=== PATIENT | female | born 1965 | race African-American/Black ===

== ENCOUNTER 2020-06-16 08:29 | Inpatient (IN) | payer OTHER ==
[2020-06-16 09:18] VITALS: BMI 18.8
[2020-06-16] MEDS ORDERED: MAGNESIUM CITRATE 300 ML BOTTLE PO PRN (09:30)
[2020-06-16] MEDS ORDERED: chlordiazePOXIDE HCL 25 MG CAPSULE PO PRN (09:30)
[2020-06-16] MEDS ORDERED: METHOCARBAMOL 500 MG TABLET PO PRN (09:30)
[2020-06-16] MEDS ORDERED: BISMUTH SUBSALICYLATE 524 MG/30 ML UD PO PRN (09:30)
[2020-06-16] MEDS ORDERED: MAGNESIUM HYDROX 2400MG/30ML ORAL SUSPENSION 30 ML CUP PO PRN (09:30)
[2020-06-16] MEDS ORDERED: ACETAMINOPHEN 325 MG TABLET (FP) PO PRN ×2 (09:30)
[2020-06-16] MEDS ORDERED: ONDANSETRON *ODT* 4 MG TABLET SL PRN (09:30)
[2020-06-16] MEDS ORDERED: NICOTINE POLACRILEX 2 MG GUM BUC PRN (09:30)
[2020-06-16] MEDS ORDERED: MENTHOL/PHENOL 1 EACH UD MM PRN (09:30)
[2020-06-16] MEDS ORDERED: ALBUTEROL SO4 HFA INHALER IH PRN (10:39)
[2020-06-16] MEDS: PRENATAL VITAMINS W/ FOLIC ACID TABLET (FP) PO SCH (11:31)
[2020-06-16] MEDS: NICOTINE 7 MG/24 HOURS TOPICAL PATCH TD SCH (11:31)
[2020-06-16] MEDS: hydrOXYzine PAMOATE 25 MG CAPSULE (FP) PO SCH ×2 (11:31→13:16)
[2020-06-16] MEDS: IBUPROFEN 400 MG TABLET (FP) PO PRN (11:32)
[2020-06-16] MEDS: ASPIRIN 81 MG CHEWABLE TABLETS PO SCH (11:32)
[2020-06-16] MEDS: predniSONE 20 MG TABLET (UD) PO SCH (12:47)
[2020-06-16] MEDS ORDERED: hydrOXYzine PAMOATE 25 MG CAPSULE (FP) PO PRN (13:50)
[2020-06-16] MEDS: chlordiazePOXIDE HCL 25 MG CAPSULE PO SCH ×2 (17:50→22:20)
[2020-06-16] MEDS: THIAMINE HCL 100 MG TABLET (FP) PO SCH (22:19)
[2020-06-16] MEDS: QUEtiapine FUMARATE 100 MG TABLET (FP) PO SCH (22:19)
[2020-06-16] MEDS: MELATONIN 5 MG TABLETS PO SCH (22:20)
[2020-06-17] MEDS: chlordiazePOXIDE HCL 25 MG CAPSULE PO SCH ×4 (06:43→23:14)
[2020-06-17] MEDS: ASPIRIN 81 MG CHEWABLE TABLETS PO SCH (11:27)
[2020-06-17] MEDS: predniSONE 20 MG TABLET (UD) PO SCH (11:27)
[2020-06-17] MEDS: NICOTINE 7 MG/24 HOURS TOPICAL PATCH TD SCH (11:29)
[2020-06-17] MEDS: PRENATAL VITAMINS W/ FOLIC ACID TABLET (FP) PO SCH (11:30)
[2020-06-17] MEDS: QUEtiapine FUMARATE 100 MG TABLET (FP) PO SCH (22:44)
[2020-06-17] MEDS: MAG HYDROX/AL HYDROX/SIMETH 30 ML UNIT-DOSE CUP PO PRN (22:44)
[2020-06-17] MEDS: MELATONIN 5 MG TABLETS PO SCH (23:12)
[2020-06-17] MEDS: THIAMINE HCL 100 MG TABLET (FP) PO SCH (23:14)
[2020-06-18] MEDS: chlordiazePOXIDE HCL 25 MG CAPSULE PO SCH ×4 (07:00→22:20)
[2020-06-18] MEDS: predniSONE 20 MG TABLET (UD) PO SCH (10:17)
[2020-06-18] MEDS: ASPIRIN 81 MG CHEWABLE TABLETS PO SCH (10:18)
[2020-06-18] MEDS: PRENATAL VITAMINS W/ FOLIC ACID TABLET (FP) PO SCH (10:18)
[2020-06-18] MEDS: NICOTINE 7 MG/24 HOURS TOPICAL PATCH TD SCH (10:20)
[2020-06-18] MEDS: MAG HYDROX/AL HYDROX/SIMETH 30 ML UNIT-DOSE CUP PO PRN (10:22)
[2020-06-18 11:19] LABS: EPI CELLS >36 /uL (0-25.1); HYALINE CASTS 0 /uL (0-3.1); URINE APPEARANCE CLOUDY; URINE BACTERIA 296 /uL (0-1359); URINE BILIRUBIN NEGATIVE (NEGATIVE); URINE COLOR YELLOW; URINE GLUCOSE (UA) NEGATIVE (NEGATIVE); URINE KETONE NEGATIVE (NEGATIVE); URINE LEUK ESTERASE 2+ (NEGATIVE); URINE NITRITE NEGATIVE (NEGATIVE); URINE PROTEIN NEGATIVE (NEGATIVE); URINE RBC 19 /uL (0-23.9); URINE WBC 96 /uL (0-25.8)
[2020-06-18] MEDS: IBUPROFEN 400 MG TABLET (FP) PO PRN (19:24)
[2020-06-18] MEDS: THIAMINE HCL 100 MG TABLET (FP) PO SCH (22:20)
[2020-06-18] MEDS: MELATONIN 5 MG TABLETS PO SCH (22:20)
[2020-06-18] MEDS: QUEtiapine FUMARATE 100 MG TABLET (FP) PO SCH (22:20)
[2020-06-19] MEDS ORDERED: chlordiazePOXIDE HCL 10 MG CAPSULE PO PRN
[2020-06-19] MEDS: chlordiazePOXIDE HCL 10 MG CAPSULE PO SCH ×4 (06:52→22:50)
[2020-06-19] MEDS: NICOTINE 7 MG/24 HOURS TOPICAL PATCH TD SCH (10:26)
[2020-06-19] MEDS: ASPIRIN 81 MG CHEWABLE TABLETS PO SCH (10:26)
[2020-06-19] MEDS: predniSONE 20 MG TABLET (UD) PO SCH (10:26)
[2020-06-19] MEDS: PRENATAL VITAMINS W/ FOLIC ACID TABLET (FP) PO SCH (10:27)
[2020-06-19] MEDS: MELATONIN 5 MG TABLETS PO SCH (22:48)
[2020-06-19] MEDS: THIAMINE HCL 100 MG TABLET (FP) PO SCH (22:49)
[2020-06-19] MEDS: QUEtiapine FUMARATE 100 MG TABLET (FP) PO SCH (22:50)
[2020-06-20] MEDS ORDERED: chlordiazePOXIDE HCL 10 MG CAPSULE PO SCH (05:00)
[2020-06-20 09:27] VITALS: BP 143/96; PULSE 107; TEMP 97
[2020-06-20] MEDS ORDERED: CLOTRIMAZOLE 10 MG TROCHE PO SCH (10:00)
[2020-06-20] MEDS: ASPIRIN 81 MG CHEWABLE TABLETS PO SCH (12:12)
[2020-06-20] MEDS: predniSONE 20 MG TABLET (UD) PO SCH (12:12)
[2020-06-20] MEDS: PRENATAL VITAMINS W/ FOLIC ACID TABLET (FP) PO SCH (12:13)
[2020-06-20] MEDS: NICOTINE 7 MG/24 HOURS TOPICAL PATCH TD SCH (12:13)
[2020-06-21] MEDS ORDERED: chlordiazePOXIDE HCL 10 MG CAPSULE PO ONE (05:00)
== END 2020-06-20 14:22 | disposition short-term general hospital (02) | DRG 774 ==
LOC: YASAS 08:29 → Y6N 09:58
PROVIDERS: ADMIT Allergy & Immunology; ATTEND Allergy & Immunology
PROC: HZ2ZZZZ Detoxification Services for Substance Abuse Treatment (ICD-10-PCS; principal; 2020-06-16)
DX: F10.230 Alcohol dependence with withdrawal, uncomplicated (principal); F14.20 Cocaine dependence, uncomplicated; F17.210 Nicotine dependence, cigarettes, uncomplicated; F19.24 Other psychoactive substance dependence with psychoactive substance-induced mood disorder; F19.282 Other psychoactive substance dependence with psychoactive substance-induced sleep disorder; F31.9 Bipolar disorder, unspecified; B20 Human immunodeficiency virus [HIV] disease; B37.0 Candidal stomatitis; R53.83 Other fatigue; R47.81 Slurred speech; R82.90 Unspecified abnormal findings in urine; J45.909 Unspecified asthma, uncomplicated; M48.00 Spinal stenosis, site unspecified; Z62.810 Personal history of physical and sexual abuse in childhood; Z59.0 Homelessness; W01.0XXA Fall on same level from slipping, tripping and stumbling without subsequent striking against object, initial encounter; Y93.01 Activity, walking, marching and hiking; Y92.230 Patient room in hospital as the place of occurrence of the external cause
CPT/HCPCS: 36415; 81003; 82962; 86780; 87086; 87661; 93005; 93010

== ENCOUNTER 2020-06-20 09:41 | Inpatient (IN) | payer OTHER ==
[2020-06-20] MEDS ORDERED: SODIUM CHLORIDE IV ONE (10:19)
[2020-06-20] MEDS ORDERED: LACTATED RINGERS SOLUTION 1000 ML INFUS.BAG IV ONE (10:22)
[2020-06-20 10:59] LABS: VENOUS BASE EXCESS 2.5 mmol/L (-2-2); VENOUS O2 SATURATION 85.5 % (70-80); VENOUS PCO2 45.3 mmHg (38-52); VENOUS PH 7.407 (7.310-7.410)
[2020-06-20 11:06] LABS: BASO % 0.2 % (0-2.0); EOS % 4.3 % (0-4.5); HEMATOCRIT 40.7 % (32.4-45.2); HEMOGLOBIN 13.3 GM/dL (10.7-15.3); LYMPH % 8.3 % (8-40); MCH 29.3 pg (25.7-33.7); MCHC 32.8 g/dl (32.0-36.0); MEAN CELL VOLUME 89.3 fl (80-96); MEAN PLT VOLUME 8.4 fl (7.5-11.1); MONO % 9.4 % (3.8-10.2); NEUT % 77.8 % (42.8-82.8); PLATELET COUNT 306 K/MM3 (134-434); RBC 4.55 M/mm3 (3.60-5.2); RDW 13.6 % (11.6-15.6); WHITE BLOOD COUNT 10.4 K/mm3 (4.0-10.0)
[2020-06-20 11:17] LABS: CHLORIDE 105 mmol/L (98-107); POTASSIUM 4.2 mmol/L (3.5-5.1); SODIUM 139 mmol/L (136-145)
[2020-06-20 11:19] LABS: ALBUMIN 2.7 g/dl (3.4-5.0); ANION GAP 7 MMOL/L (8-16); CALCIUM 8.7 mg/dL (8.5-10.1); CO2 28 mmol/L (21-32); GLUCOSE,RANDOM 79 mg/dL (74-106)
[2020-06-20 11:20] LABS: INR 0.91 (0.83-1.09); PROTHROMBIN TIME (PATIENT) 11.1 SEC (9.7-13.0)
[2020-06-20 11:21] LABS: BLOOD UREA NITROGEN 13.4 mg/dL (7-18)
[2020-06-20 11:22] LABS: ACTIVATED PTT 27.5 SECONDS (25.2-36.5); CREATININE 0.5 mg/dL (0.55-1.3); SGOT/AST 12 U/L (15-37); SGPT/ALT 18 U/L (13-61)
[2020-06-20 11:23] LABS: BILIRUBIN,DIRECT 0.1 mg/dL (0.0-0.2); BILIRUBIN,TOTAL 0.2 mg/dL (0.2-1); TOT PROT 6.8 g/dl (6.4-8.2)
[2020-06-20 11:25] LABS: ALK PHOS 77 U/L (45-117)
[2020-06-20 11:26] LABS: LDH 195 U/L (84-246)
[2020-06-20 11:40] LABS: COCAINE, UR NEGATIVE ng/ml (CUTOFF=300); PHENCYCLIDINE,URINE NEGATIVE ng/ml (CUTOFF=25); URINE BARBITURATES NEGATIVE ng/ml (CUTOFF=200)
[2020-06-20 11:47] LABS: METHADONE, UR NEGATIVE ng/ml (CUTOFF=300); OPIATES, URI NEGATIVE ng/ml (CUTOFF=300); URINE AMPHETAMINES NEGATIVE ng/ml (CUTOFF=500)
[2020-06-20 11:57] LABS: URINE BENZODIAZEPINES POSITIVE ng/ml (CUTOFF=200)
[2020-06-20 12:25] LABS: EPI CELLS 34 /uL (0-25.1); HYALINE CASTS 0 /uL (0-3.1); PH,URINE 8.5 (5.0-8.0); URINE APPEARANCE CLEAR; URINE BACTERIA 114 /uL (0-1359); URINE BILIRUBIN NEGATIVE (NEGATIVE); URINE COLOR YELLOW; URINE GLUCOSE (UA) NEGATIVE (NEGATIVE); URINE KETONE NEGATIVE (NEGATIVE); URINE LEUK ESTERASE 2+ (NEGATIVE); URINE NITRITE NEGATIVE (NEGATIVE); URINE PROTEIN NEGATIVE (NEGATIVE); URINE RBC 6 /uL (0-23.9); URINE UROBILINOGEN 0.2 mg/dL (0.2-1.0); URINE WBC 48 /uL (0-25.8)
[2020-06-20] MEDS ORDERED: CEFTRIAXONE 1,000 MG in DEXTROSE 5%-WATER - 50 ML IVPB ONE (12:38)
[2020-06-20] MEDS ORDERED: FLUCONAZOLE 100 MG TABLET (UD) PO ONE (12:39)
[2020-06-20] MEDS ORDERED: FLUCONAZOLE 100 MG TABLET (UD) ONE (12:45)
[2020-06-20] MEDS ORDERED: CEFTRIAXONE 1 GM/50 ML BAG ONE (12:45)
[2020-06-20] MEDS ORDERED: ALBUTEROL SO4 HFA INHALER IH PRN (14:43)
[2020-06-20] MEDS ORDERED: FAMOTIDINE 20 MG/50 ML IVPB 20 MG/50 ML MG IVPB ONE ×2 (14:56→23:08)
[2020-06-20] MEDS: FAMOTIDINE 20 MG/50 ML IVPB 20 MG/50 ML MG IVPB SCH (14:56)
[2020-06-20] MEDS ORDERED: ACETAMINOPHEN 1000 MG/100 ML VIAL (NON FORMULARY) IVPB PRN (17:25)
[2020-06-20] MEDS: HEPARIN NA (PORCINE) 5,000 UNITS/ML 1ML VIAL SQ SCH (19:18)
[2020-06-20] MEDS ORDERED: HEPARIN NA (PORCINE) 5,000 UNITS/ML 1ML VIAL ONE (19:18)
[2020-06-21] MEDS: HEPARIN NA (PORCINE) 5,000 UNITS/ML 1ML VIAL SQ SCH ×3 (03:00→17:16)
[2020-06-21 04:39] VITALS: BMI 19.3
[2020-06-21 09:02] LABS: BASO % 0.3 % (0-2.0); EOS % 7.3 % (0-4.5); HEMATOCRIT 40.1 % (32.4-45.2); HEMOGLOBIN 12.8 GM/dL (10.7-15.3); LYMPH % 8.7 % (8-40); MCH 28.4 pg (25.7-33.7); MEAN CELL VOLUME 88.8 fl (80-96); MEAN PLT VOLUME 7.9 fl (7.5-11.1); MONO % 11.1 % (3.8-10.2); NEUT % 72.6 % (42.8-82.8); PLATELET COUNT 302 K/MM3 (134-434); RBC 4.51 M/mm3 (3.60-5.2); RDW 13.8 % (11.6-15.6); WHITE BLOOD COUNT 6.4 K/mm3 (4.0-10.0)
[2020-06-21 09:03] LABS: PROTHROMBIN TIME (PATIENT) 12.3 SEC (9.7-13.0)
[2020-06-21 09:19] LABS: POTASSIUM 3.8 mmol/L (3.5-5.1)
[2020-06-21 09:34] LABS: CALCIUM 8.5 mg/dL (8.5-10.1); CREATININE 0.5 mg/dL (0.55-1.3)
[2020-06-21 09:35] LABS: ALBUMIN 2.7 g/dl (3.4-5.0); BLOOD UREA NITROGEN 10.6 mg/dL (7-18); MAGNESIUM 2.2 mg/dL (1.8-2.4); PHOSPHOROUS 5.4 mg/dL (2.5-4.9)
[2020-06-21 09:36] LABS: BILIRUBIN,TOTAL 0.5 mg/dL (0.2-1)
[2020-06-21 09:37] LABS: TOT PROT 6.8 g/dl (6.4-8.2)
[2020-06-21] MEDS ORDERED: cefTRIAXone SODIUM 1 GM VIAL ONE (10:00)
[2020-06-21] MEDS ORDERED: DEXTROSE 5%-WATER - 50 ML IVPB ONE (10:00)
[2020-06-21] MEDS: CEFTRIAXONE 1 GM in DEXTROSE 5%-WATER - 50 ML IVPB SCH (10:26)
[2020-06-21] MEDS: FAMOTIDINE 20 MG/50 ML IVPB 20 MG/50 ML MG IVPB SCH (11:32)
[2020-06-21] MEDS ORDERED: ACETAMINOPHEN 325 MG TABLET (FP) PO PRN (12:52)
[2020-06-21] MEDS ORDERED: LORazepam 2 MG/ML SDV VIAL IVPUSH PRN (13:01)
[2020-06-21] MEDS: FLUCONAZOLE 100 MG TABLET (UD) PO SCH (13:05)
[2020-06-22 01:36] VITALS: PULSE 89
[2020-06-22] MEDS: HEPARIN NA (PORCINE) 5,000 UNITS/ML 1ML VIAL SQ SCH ×2 (02:50→10:01)
[2020-06-22 06:08] VITALS: BP 126/83; TEMP 98.8
[2020-06-22 08:52] LABS: BASO % 0.4 % (0-2.0); HEMATOCRIT 38.5 % (32.4-45.2); HEMOGLOBIN 12.3 GM/dL (10.7-15.3); LYMPH % 14.5 % (8-40); MCH 28.3 pg (25.7-33.7); MCHC 31.9 g/dl (32.0-36.0); MEAN CELL VOLUME 88.6 fl (80-96); MEAN PLT VOLUME 8.1 fl (7.5-11.1); MONO % 13.8 % (3.8-10.2); NEUT % 63.3 % (42.8-82.8); PLATELET COUNT 303 K/MM3 (134-434); RBC 4.34 M/mm3 (3.60-5.2); RDW 13.7 % (11.6-15.6)
[2020-06-22 09:00] LABS: WHITE BLOOD COUNT 6.2 K/mm3 (4.0-10.0)
[2020-06-22 09:11] LABS: POTASSIUM 4.4 mmol/L (3.5-5.1)
[2020-06-22 09:21] LABS: ALBUMIN 2.5 g/dl (3.4-5.0); BLOOD UREA NITROGEN 14.9 mg/dL (7-18); CALCIUM 8.7 mg/dL (8.5-10.1)
[2020-06-22 09:23] LABS: MAGNESIUM 2.2 mg/dL (1.8-2.4)
[2020-06-22 09:26] LABS: CREATININE 0.6 mg/dL (0.55-1.3)
[2020-06-22 09:27] LABS: BILIRUBIN,TOTAL 0.3 mg/dL (0.2-1); TOT PROT 6.5 g/dl (6.4-8.2)
[2020-06-22] MEDS ORDERED: DEXTROSE 5%-WATER - 50 ML IVPB ONE (09:38)
[2020-06-22] MEDS ORDERED: cefTRIAXone SODIUM 1 GM VIAL ONE (09:38)
[2020-06-22] MEDS: CEFTRIAXONE 1 GM in DEXTROSE 5%-WATER - 50 ML IVPB SCH (10:00)
[2020-06-22] MEDS: FLUCONAZOLE 100 MG TABLET (UD) PO SCH (10:01)
[2020-06-22] MEDS: FAMOTIDINE 20 MG/50 ML IVPB 20 MG/50 ML MG IVPB SCH (10:28)
[2020-06-22] MEDS ORDERED: ALPRAZolam 0.25 MG TABLET PO ONE (10:45)
== END 2020-06-22 14:16 | disposition home or self-care (01) | DRG 52 ==
LOC: JER 09:41 → JERBED 12:44 → J6S 06-21 03:00
PROVIDERS: ADMIT Internal Medicine; ATTEND Nurse Practitioner Family
DX: G92 Toxic encephalopathy (principal); F10.20 Alcohol dependence, uncomplicated; R55 Syncope and collapse; F31.9 Bipolar disorder, unspecified; N39.0 Urinary tract infection, site not specified; F41.9 Anxiety disorder, unspecified; Z91.14 Patient's other noncompliance with medication regimen; Z21 Asymptomatic human immunodeficiency virus [HIV] infection status; Z59.0 Homelessness; F17.210 Nicotine dependence, cigarettes, uncomplicated; B37.0 Candidal stomatitis; J18.9 Pneumonia, unspecified organism; K43.0 Incisional hernia with obstruction, without gangrene; F14.20 Cocaine dependence, uncomplicated; R13.10 Dysphagia, unspecified; D72.829 Elevated white blood cell count, unspecified; R53.1 Weakness
CPT/HCPCS: 36415; 70450-TC; 70551-TC; 71045-TC-FY; 72125-TC; 74177-TC; 80053; 80061; 80307; 81003; 82140; 82248; 82550; 82553; 82728; 82803; 83036; 83605; 83615; 83721; 83735; 84100; 84443; 84484; 85025; 85610; 85730; 86140; 86359; 86360; 86850; 86900; 86901; 87040; 87086; 87899; 93005; 93010; 93880-TC; 97116-GP; 97161-GP; 99285-25; C9803; Q9967; U0003